=== PATIENT | female | born 1975 | race Caucasian/White ===

== ENCOUNTER 2020-09-08 19:32 | Inpatient (IN) | payer OTHER ==
[2020-09-08 19:55] VITALS: BMI 46.8
[2020-09-08 21:47] LABS: BASO % 0.3 % (0-2.0); EOS % 1.4 % (0-4.5); HEMATOCRIT 34.4 % (32.4-45.2); HEMOGLOBIN 11.1 GM/dL (10.7-15.3); LYMPH % 27.1 % (8-40); MCH 25.6 pg (25.7-33.7); MCHC 32.3 g/dl (32.0-36.0); MEAN CELL VOLUME 79.3 fl (80-96); MEAN PLT VOLUME 8.2 fl (7.5-11.1); MONO % 7.3 % (3.8-10.2); NEUT % 63.9 % (42.8-82.8); PLATELET COUNT 291 K/MM3 (134-434); RBC 4.35 M/mm3 (3.60-5.2); RDW 15.3 % (11.6-15.6); WHITE BLOOD COUNT 8.2 K/mm3 (4.0-10.0)
[2020-09-08 21:54] LABS: PROTHROMBIN TIME (PATIENT) 12.1 SEC (9.7-13.0)
[2020-09-08] MEDS ORDERED: IBUPROFEN 600 MG TABLET (FP) PO ONE ×2 (22:03→22:15)
[2020-09-08 22:06] LABS: POTASSIUM 3.9 mmol/L (3.5-5.1)
[2020-09-08 22:08] LABS: CALCIUM 9.1 mg/dL (8.5-10.1)
[2020-09-08 22:10] LABS: ALBUMIN 3.6 g/dl (3.4-5.0); BLOOD UREA NITROGEN 17.4 mg/dL (7-18)
[2020-09-08 22:12] LABS: CREATININE 0.7 mg/dL (0.55-1.3)
[2020-09-08 22:14] LABS: BILIRUBIN,TOTAL 0.1 mg/dL (0.2-1); TOT PROT 7.5 g/dl (6.4-8.2)
[2020-09-08] MEDS ORDERED: HEPARIN NA (PORCINE) 5,000 UNITS/ML 1ML VIAL IVPUSH ONE (22:54)
[2020-09-08] MEDS ORDERED: HEPARIN NA (PORCINE) 5,000 UNITS/ML 1ML VIAL IVPUSH PRN (22:54)
[2020-09-08] MEDS ORDERED: HEPARIN NA (PORCINE) 5,000 UNITS/ML 1ML VIAL ONE (23:16)
[2020-09-08] MEDS ORDERED: HEPARIN INFUSION - 25,000 UNITS/500 ML INFUS.BAG IVPB ONE (23:16)
[2020-09-08] MEDS: HEPARIN INFUSION - 25,000 UNITS/500 ML INFUS.BAG IVPB SCH (23:57)
[2020-09-09] MEDS ORDERED: ACETAMINOPHEN 325 MG TABLET (FP) PO PRN (00:20)
[2020-09-09 08:50] LABS: POTASSIUM 3.8 mmol/L (3.5-5.1)
[2020-09-09 08:53] LABS: CALCIUM 8.6 mg/dL (8.5-10.1)
[2020-09-09 08:54] LABS: ALBUMIN 3.2 g/dl (3.4-5.0); BLOOD UREA NITROGEN 15.8 mg/dL (7-18)
[2020-09-09 08:57] LABS: BILIRUBIN,TOTAL 0.7 mg/dL (0.2-1); CREATININE 0.5 mg/dL (0.55-1.3); PHOSPHOROUS 3.8 mg/dL (2.5-4.9); TOT PROT 6.5 g/dl (6.4-8.2)
[2020-09-09] MEDS: HEPARIN NA (PORCINE) 5,000 UNITS/ML 1ML VIAL IVPUSH PRN (17:05)
[2020-09-09] MEDS ORDERED: amLODIPine BESYLATE 5 MG TABLET (FP) PO ONE (17:41)
[2020-09-10] MEDS: HEPARIN INFUSION - 25,000 UNITS/500 ML INFUS.BAG IVPB SCH ×2 (00:10→16:48)
[2020-09-10] MEDS: HEPARIN NA (PORCINE) 5,000 UNITS/ML 1ML VIAL IVPUSH PRN (00:17)
[2020-09-10 08:22] LABS: HEMOGLOBIN 10.7 GM/dL (10.7-15.3); MCH 25.6 pg (25.7-33.7); MCHC 32.4 g/dl (32.0-36.0); MEAN CELL VOLUME 78.8 fl (80-96); MEAN PLT VOLUME 8.3 fl (7.5-11.1); PLATELET COUNT 261 K/MM3 (134-434); RBC 4.19 M/mm3 (3.60-5.2); RDW 15.4 % (11.6-15.6)
[2020-09-10 08:28] LABS: POTASSIUM 4.2 mmol/L (3.5-5.1)
[2020-09-10 08:30] LABS: CALCIUM 8.3 mg/dL (8.5-10.1)
[2020-09-10 08:31] LABS: BLOOD UREA NITROGEN 8.8 mg/dL (7-18)
[2020-09-10 08:34] LABS: CREATININE 0.6 mg/dL (0.55-1.3)
[2020-09-10 08:36] LABS: BILIRUBIN,TOTAL 0.3 mg/dL (0.2-1); TOT PROT 6.8 g/dl (6.4-8.2)
[2020-09-10] MEDS: amLODIPine BESYLATE 5 MG TABLET (FP) PO SCH (10:31)
[2020-09-11 07:19] LABS: HEMATOCRIT 34.5 % (32.4-45.2); HEMOGLOBIN 10.9 GM/dL (10.7-15.3); MCH 24.8 pg (25.7-33.7); MCHC 31.7 g/dl (32.0-36.0); MEAN CELL VOLUME 78.3 fl (80-96); MEAN PLT VOLUME 8.3 fl (7.5-11.1); PLATELET COUNT 270 K/MM3 (134-434); RDW 15.8 % (11.6-15.6)
[2020-09-11 07:42] LABS: CHLORIDE 105 mmol/L (98-107); SODIUM 137 mmol/L (136-145)
[2020-09-11 07:46] LABS: CALCIUM 8.8 mg/dL (8.5-10.1)
[2020-09-11 07:47] LABS: ANION GAP 5 MMOL/L (8-16); CO2 28 mmol/L (21-32); GLUCOSE,RANDOM 111 mg/dL (74-106)
[2020-09-11 07:50] LABS: CREATININE 0.5 mg/dL (0.55-1.3)
[2020-09-11] MEDS: amLODIPine BESYLATE 5 MG TABLET (FP) PO SCH (09:37)
[2020-09-11] MEDS: HEPARIN INFUSION - 25,000 UNITS/500 ML INFUS.BAG IVPB SCH ×2 (11:25→23:01)
[2020-09-12] MEDS: HEPARIN INFUSION - 25,000 UNITS/500 ML INFUS.BAG IVPB SCH (05:24)
[2020-09-12 08:35] LABS: HEMATOCRIT 34.9 % (32.4-45.2); HEMOGLOBIN 11.4 GM/dL (10.7-15.3); MCH 25.7 pg (25.7-33.7); MCHC 32.5 g/dl (32.0-36.0); MEAN CELL VOLUME 78.9 fl (80-96); MEAN PLT VOLUME 8.1 fl (7.5-11.1); PLATELET COUNT 266 K/MM3 (134-434); RBC 4.43 M/mm3 (3.60-5.2); RDW 15.8 % (11.6-15.6); WHITE BLOOD COUNT 6.2 K/mm3 (4.0-10.0)
[2020-09-12 08:53] LABS: POTASSIUM 4.3 mmol/L (3.5-5.1)
[2020-09-12 08:57] LABS: BLOOD UREA NITROGEN 10.1 mg/dL (7-18); CALCIUM 8.9 mg/dL (8.5-10.1)
[2020-09-12 09:00] LABS: CREATININE 0.6 mg/dL (0.55-1.3)
[2020-09-12] MEDS: HEPARIN NA (PORCINE) 5,000 UNITS/ML 1ML VIAL IVPUSH PRN ×2 (09:03→16:34)
[2020-09-12] MEDS: amLODIPine BESYLATE 5 MG TABLET (FP) PO SCH (09:05)
[2020-09-12 16:09] LABS: BETA-2-MICROGLOBULIN 1.2 mg/L (0.6-2.4)
[2020-09-12] MEDS ORDERED: HEPARIN NA (PORCINE) 5,000 UNITS/ML 1ML VIAL IVPUSH PRN ×4 (17:39→18:42)
[2020-09-12] MEDS ORDERED: APIXABAN 5 MG TABLET PO ONE (20:00)
[2020-09-13 08:06] LABS: HEMATOCRIT 36.2 % (32.4-45.2); HEMOGLOBIN 11.4 GM/dL (10.7-15.3); MCH 24.6 pg (25.7-33.7); MCHC 31.5 g/dl (32.0-36.0); MEAN CELL VOLUME 78.2 fl (80-96); MEAN PLT VOLUME 8.2 fl (7.5-11.1); PLATELET COUNT 260 K/MM3 (134-434); RBC 4.63 M/mm3 (3.60-5.2); RDW 15.9 % (11.6-15.6); WHITE BLOOD COUNT 6.3 K/mm3 (4.0-10.0)
[2020-09-13 08:27] LABS: POTASSIUM 4.4 mmol/L (3.5-5.1)
[2020-09-13 08:28] LABS: BLOOD UREA NITROGEN 9.9 mg/dL (7-18); CALCIUM 8.8 mg/dL (8.5-10.1)
[2020-09-13 08:32] LABS: CREATININE 0.6 mg/dL (0.55-1.3)
[2020-09-13] MEDS: amLODIPine BESYLATE 5 MG TABLET (FP) PO SCH (09:40)
[2020-09-13] MEDS ORDERED: APIXABAN 5 MG TABLET PO SCH (10:00)
[2020-09-13 14:07] LABS: DRVVT - 34.5 sec (0.0-47.0)
[2020-09-13 14:55] VITALS: BP 129/64; PULSE 84; TEMP 98.2
== END 2020-09-13 17:26 | disposition home or self-care (01) | DRG 197 ==
LOC: JER 19:32 → JERBED 22:51 → J8W 09-09 02:32
PROVIDERS: ADMIT Internal Medicine; ATTEND Internal Medicine
PROC: 3E033GC Introduction of Other Therapeutic Substance into Peripheral Vein, Percutaneous Approach (ICD-10-PCS; principal; 2020-09-08)
DX: I82.622 Acute embolism and thrombosis of deep veins of left upper extremity (principal); M79.622 Pain in left upper arm; D73.89 Other diseases of spleen; E27.8 Other specified disorders of adrenal gland; I80.8 Phlebitis and thrombophlebitis of other sites; E66.01 Morbid (severe) obesity due to excess calories; Z68.42 Body mass index [BMI] 45.0-49.9, adult; Z71.3 Dietary counseling and surveillance
CPT/HCPCS: 36415; 70490-TC; 71046-TC-FY; 71250-TC; 74176-TC; 76882-TC-RT-FY; 80048; 80053; 81240; 81241; 82232; 82272; 82378; 82550; 83036; 83735; 84100; 84484; 84703; 85025; 85027; 85610; 85613; 85730; 85732; 86301; 86304; 88300-TC; 93005; 93010; 93306-TC; 93971; 99285-25; C9803; J1644; U0003